=== PATIENT | male | born 1985 | race Caucasian/White ===

== ENCOUNTER → 2017-02-03 | Outpatient (CLI) | payer BC ==
--- NOTE | 2017-02-03 09:48 | NM ---
Nuclear medicine hepatobiliary scan. HISTORY: Pain. The patient received 8 ounces and ensure plus and 5.2 mCi of Technetium 99m Choletec. There is normal hepatic extraction. The gallbladder is seen by 20 minutes. There is biliary to montez l clearance by 50 minutes. Ejection fraction is 81%. IMPRESSION: 1. Normal hepatobiliary exam
== END | disposition home or self-care (01) ==
LOC: RADNMMAIN 06:46
PROVIDERS: ATTEND Surgery
DX: K81.1 Chronic cholecystitis (principal)
CPT/HCPCS: 78226; A9537

== ENCOUNTER 2017-02-08 08:58 | Day surgery (SDC) | payer BC ==
[2017-02-03 15:26] VITALS: BMI 39.0
[~2017-02-08 08:58] MED LIST: LACTATED RINGERS 1,000 ML IV SCH; LIDOCAINE 1% 20 ML VIAL (10MG/ML) FOR IV START INTRADERMA PRN
[2017-02-08 10:04] VITALS: TEMP 97
--- NOTE | 2017-02-08 10:16 | P.GSHP ---
History of Present Illness H&P Date: 02/08/17 Chief Complaint: GERD, epigastric dull pain This is a 31-year-old male who presents today for EGD. Patient's echo with GERD and epigastric dull pain. His recent HIDA scan shows abnormal ejection fraction 81% consistent with biliary hyperkinesis. Past Medical History Additional Past Medical History / Comment(s): "slow heart rate" History of Any Multi-Drug Resistant Organisms: None Reported Past Surgical History: Orthopedic Surgery Additional Past Surgical History / Comment(s): arthroscopic rt knee. RT SHOULDER SX Past Anesthesia/Blood Transfusion Reactions: No Reported Reaction Smoking Status: Never smoker - Past Family History Father Family Medical History: Deep Vein Thrombosis (DVT) Medications and Allergies Home Medications Medication Instructions Recorded Confirmed Type No Known Home Medications [No 02/03/17 02/03/17 History Known Home Medications] Allergies Allergy/AdvReac Type Severity Reaction Status Date / Time amoxicillin Allergy Unknown Verified 02/03/17 15:23 Childhood Penicillins Allergy Unknown Verified 02/03/17 15:23 Childhood Surgical - Exam Vital Signs Temp Pulse Resp BP Pulse Ox 97 F L 84 16 122/67 97 02/08/17 10:00 02/08/17 10:00 02/08/17 10:00 02/08/17 10:00 02/08/17 10:00 - General well developed, no distress - Eyes PERRL - ENT normal pinna - Neck no masses - Respiratory normal expansion - Cardiovascular Rhythm: regular - Abdomen Abdomen: soft, non tender Assessment and Plan Plan: Epigastric dull pain, GERD. We'll perform EGD. Patient will follow-up in the office after his biopsy results are available.
[2017-02-08] MEDS ORDERED: PROPOFOL 10 MG/ML 20 ML VIAL IV ONE (10:18)
[2017-02-08] MEDS ORDERED: LIDOCAINE 1% INJ 10MG/ML (20 ML MDV) ONE (10:18)
--- NOTE | 2017-02-08 10:24 | P.OP ---
Date of Procedure: 02/08/17 Preoperative Diagnosis: Epigastric pain Postoperative Diagnosis: Mild antral gastritis Mild esophagitis Procedure(s) Performed: EGD Implants: Anesthesia: MAC Surgeon: Franco Rodriges Pathology: other (Antrum, esophagus) Condition: stable Disposition: PACU Indications for Procedure: Operative Findings: Description of Procedure: The patient's placed on the endoscopy table in the lateral position. He received IV sedation. The gastroscope placed oropharynx passed in the esophagus and stomach. Scope was then placed through the pylorus. The first and second portion of the duodenum appeared normal. Scope summer back the antrum and this appeared mildly inflamed a biopsies performed. Scope was unretroflexed and remainder of the stomach appeared normal. There was a small sliding hiatal hernia. The GE junction was at 47 is. The distal esophagus appeared mildly inflamed a biopsies performed. The proximal esophagus appeared normal. Scope was withdrawn for patient. Patient had a HIDA scan performed which showed a elevated ejection fraction 81% . Patient will follow-up in the office for biopsy results and to go over his HIDA scan.
[2017-02-08 10:30] VITALS: RESP 18
[2017-02-08 10:53] VITALS: BP 135/94; PULSE 68
== END 2017-02-08 11:15 | disposition home or self-care (01) ==
LOC: ORWHC2ENDO 08:58
PROVIDERS: ATTEND Surgery
DX: K20.0 Eosinophilic esophagitis (principal); K29.50 Unspecified chronic gastritis without bleeding; Z88.0 Allergy status to penicillin
CPT/HCPCS: 88305; 88342; 43239; J2001; J2704

== ENCOUNTER 2017-02-17 09:09 | Day surgery (SDC) | payer BC ==
[2017-02-15 16:06] VITALS: BMI 39.0
[~2017-02-17 09:09] MED LIST changes: +DEXAMETHASONE SOD PHOSPHATE 10 MG/ML 1 ML VIAL IV ONE; +HEPARIN SODIUM,PORCINE 5,000 UNIT/ML 1 ML VIAL SQ ONE; +HYDROmorphone 1 MG/ML 1 ML SYRINGE IVP PRN; +MIDAZOLAM 2 MG/2 ML VIAL IV PRN; +ONDANSETRON 4 MG/2 ML VIAL IVP ONE; +SCOPOLAMINE 1.5MG/72HR PATCH TRANSDERM ONE; +ceFAZolin 3 GM in SODIUM CHLORIDE 0.9% 100 ML IVPB ONE
[2017-02-17 09:39] VITALS: RESP 16
--- NOTE | 2017-02-17 10:20 | P.GSHP ---
History of Present Illness H&P Date: 02/17/17 Chief Complaint: Right upper quadrant pain This is a 31-year-old male who presents today for laparoscopic cholecystectomy. Patient's had complete the right upper quadrant pain. History HIDA scan shows abnormal ejection fraction. Patient rents today for laparoscopic ostectomy for chronic cholecystitis. Past Medical History Past Medical History: No Reported History Additional Past Medical History / Comment(s): "slow heart rate" History of Any Multi-Drug Resistant Organisms: None Reported Past Surgical History: Orthopedic Surgery Additional Past Surgical History / Comment(s): arthroscopic rt knee, r shoulder Past Anesthesia/Blood Transfusion Reactions: No Reported Reaction Smoking Status: Never smoker - Past Family History Father Family Medical History: Deep Vein Thrombosis (DVT) Medications and Allergies Home Medications Medication Instructions Recorded Confirmed Type No Known Home Medications [No 02/03/17 02/17/17 History Known Home Medications] Allergies Allergy/AdvReac Type Severity Reaction Status Date / Time amoxicillin Allergy Unknown Verified 02/17/17 09:39 Childhood Penicillins Allergy Unknown Verified 02/17/17 09:39 Childhood Surgical - Exam Vital Signs Temp Pulse Resp BP Pulse Ox 98.2 F 73 16 126/83 95 02/17/17 09:34 02/17/17 09:34 02/17/17 09:34 02/17/17 09:34 02/17/17 09:34 - General well developed, no distress - Eyes PERRL - ENT normal pinna - Neck no masses - Respiratory normal expansion - Cardiovascular Rhythm: regular - Abdomen Abdomen: soft, non tender Assessment and Plan Plan: Right upper quadrant pain Chronic cholecystitis We will perform laparoscopic cholecystectomy.
[2017-02-17] MEDS ORDERED: fentaNYL (PF) 50 MCG/ML 2 ML AMP ONE (10:36)
[2017-02-17] MEDS ORDERED: ROCURONIUM BROMIDE 10 MG/ML 10 ML VIAL IV ONE (10:36)
[2017-02-17] MEDS ORDERED: LIDOCAINE 1% INJ 10MG/ML (20 ML MDV) ONE (10:36)
[2017-02-17] MEDS ORDERED: GLYCOPYRROLATE 0.2 MG/ML 2 ML VIAL ONE (10:36)
[2017-02-17] MEDS ORDERED: HYDROmorphone (PF) 1 MG/ML ONE (10:36)
[2017-02-17] MEDS ORDERED: ePHEDrine 50 MG/ML 1 ML AMP ONE (10:36)
[2017-02-17] MEDS ORDERED: PROPOFOL 10 MG/ML 20 ML VIAL IV ONE (10:36)
[2017-02-17] MEDS ORDERED: NEOSTIGMINE 1 MG/ML 10 ML VIAL ONE (10:36)
[2017-02-17] MEDS ORDERED: SUCCINYLCHOLINE CHLORIDE 100 MG/5 ML SYR IV ONE (10:36)
[2017-02-17] MEDS ORDERED: MIDAZOLAM 2 MG/2 ML VIAL ONE (10:36)
[2017-02-17] MEDS: CLINDAMYCIN 600 MG in DEXTROSE 5% IN WATER 50 ML IVPB STA ×4 (11:10→11:11)
[2017-02-17] MEDS ORDERED: BUPIVACAIN-EPI 0.5%-1:200,000 30 ML VIAL SQ ONE (11:13)
[2017-02-17] MEDS ORDERED: LACTATED RINGERS 1,000 ML IV ONE (11:31)
--- NOTE | 2017-02-17 11:35 | P.OP ---
Date of Procedure: 02/17/17 Preoperative Diagnosis: Cholecystitis Postoperative Diagnosis: Cholecystitis Procedure(s) Performed: Laparoscopic cholecystectomy Implants: Anesthesia: MARAL Surgeon: Franco Rodriges Estimated Blood Loss (ml): 5 Pathology: other (Bladder) Condition: stable Disposition: PACU Indications for Procedure: Operative Findings: Description of Procedure: The patient was placed on the operating table. The patient received a general endotracheal tube anesthesia. The patients abdomen was prepped and draped in the usual sterile fashion. Through an infraumbilical stab incision, the fascia of the anterior abdominal wall was grasped with a pair of Kochers and then the Veress needle was placed in the peritoneal cavity. Position of the Veress needle was confirmed with positive drop test. The abdomen was then insufflated. After adequate insufflation, the 10 mm trocar was placed in the peritoneal cavity. Following this the laparoscope was placed in the peritoneal cavity. The patient was placed in the head-up, right side up position and then a 5 mm trocar was placed in the right lateral and right subcostal position under direct visualization. A 8 mm trocar was placed in the epigastric position. The gallbladder was grasped in the fundus and infundibulum. Traction on the gallbladder was placed in the lateral and the cephalad positions. The triangle of Calot was visualized.. The cystic duct was bluntly dissected until the union of the cystic duct and common bile duct was seen. The cystic duct was then divided and sealed with the Harmonic scissors. A PDS Endoloop was then placed throughout the cystic duct stump. The cystic artery divided and sealed with the Harmonic scissors. The gallbladder was then removed from the liver bed using Harmonic scissors. The gallbladder was then extracted through the epigastric port site. Operative field was checked for any bleeding spots and Harmonic scissors was used to coagulate the liver bed. The abdomen was irrigated. The trocars were removed. The skin was closed using interrupted 3-0 Vicryl suture. Dermabond dressing were applied. The patient tolerated the procedure well.
[2017-02-17 11:54] VITALS: TEMP 97.1
[2017-02-17] MEDS ORDERED: ONDANSETRON 4 MG/2 ML VIAL IVP ONE (13:59)
[2017-02-17 15:12] VITALS: BP 120/70; PULSE 61
== END 2017-02-17 16:00 | disposition home or self-care (01) ==
LOC: OR 09:09
PROVIDERS: ATTEND Surgery
DX: K81.1 Chronic cholecystitis (principal); K21.9 Gastro-esophageal reflux disease without esophagitis; Z88.0 Allergy status to penicillin
CPT/HCPCS: 88304; 47562; J2250; J1644; J1100; J2710; J2405; J2001; J3010; J1170; J0330; J2704